=== PATIENT | male | born 1950 | race Caucasian/White ===

== ENCOUNTER 2017-09-21 11:37 | Emergency (ER) | payer OTHER, MEDICAID ==
[~2017-09-21] VITALS: Ht 167.6 cm; Wt 81.6 kg
[2017-09-21 11:37] VITALS: BP_SYST 128
[2017-09-21 13:22] VITALS: BP_SYST 125
== END 2017-09-21 13:22 | disposition home or self-care (01) ==
LOC: SED 11:37
DX: J06.9 Acute upper respiratory infection, unspecified (principal); E11.9 Type 2 diabetes mellitus without complications; I10 Essential (primary) hypertension
CPT/HCPCS: 71046-TC; 99284

== ENCOUNTER 2018-04-06 22:18 | Inpatient (IN) | payer OTHER, MEDICAID ==
[~2018-04-06] VITALS: Ht 167.6 cm; Wt 78.9 kg
[2018-04-06 22:20] VITALS: BP_SYST 150
[2018-04-06] MEDS ORDERED: NACL 0.9% 1,000 ML IV ONE (22:31)
[2018-04-06] MEDS ORDERED: ASPIRIN 81 MG TAB.CHEW PO ONE (22:45)
[2018-04-06] MEDS ORDERED: MORPHINE 4 MG/ML INJ. SYRINGE IVP ONE (22:45)
[2018-04-06] MEDS ORDERED: CLOPIDOGREL BISULFATE 75 MG TABLET PO ONE (22:45)
[2018-04-06] MEDS ORDERED: ONDANSETRON HCL 4 MG/2 ML VIAL IVP ONE (22:45)
[2018-04-06 23:08] LABS: BASOPHILS # (AUTO) 0.1 K/uL (0.0-0.2); BASOPHILS % (AUTO) 1.9 % (0.0-2.0); EOSINOPHILS # (AUTO) 0.1 K/uL (0.0-0.4); EOSINOPHILS % (AUTO) 2.3 % (0.0-4.0); HEMATOCRIT 35.3 % (36-54); HEMOGLOBIN 12.3 g/dL (14.0-18.0); LYMPHOCYTES # (AUTO) 1.3 K/uL (1.0-5.5); LYMPHOCYTES % (AUTO) 26.4 % (20.5-51.5); MEAN CORPUSCULAR HEMOGLOBIN 32 pg (27-31); MEAN CORPUSCULAR HGB CONC 35 % (32-36); MEAN CORPUSCULAR VOLUME 92 fL (79.0-98.0); MONOCYTES # (AUTO) 0.5 K/uL (0.0-1.0); MONOCYTES % (AUTO) 9.4 % (1.7-9.3); NEUTROPHILS # (AUTO) 2.9 K/uL (1.8-7.7); PLATELET COUNT (AUTO) 205 K/uL (130-430); RED BLOOD CELL COUNT(AUTO) 3.86 MIL/uL (4.2-6.2); RED CELL DISTRIBUTION WIDTH 11.7 % (9.0-15.0); WHITE BLOOD COUNT (AUTO) 4.9 K/uL (4.8-10.8)
[2018-04-06 23:22] LABS: CALCIUM 8.6 mg/dL (8.4-11.0); CREATININE 1.14 mg/dL (0.55-1.30); POTASSIUM 4.4 mmol/L (3.5-5.1)
[2018-04-06 23:25] LABS: INR 1.1 (0.80-1.20); PROTHROMBIN TIME 11.2 SECS (9.5-12.5)
[2018-04-06 23:26] LABS: ALBUMIN 4.2 g/dL (3.4-4.8); TOTAL BILIRUBIN 0.4 mg/dL (0.0-1.0)
[2018-04-06] MEDS ORDERED: GLIP10TA11 PO (23:42)
[2018-04-06] MEDS ORDERED: ASPI-1155 PO (23:42)
[2018-04-06] MEDS ORDERED: AMLO5TAB4 PO (23:42)
[2018-04-06] MEDS ORDERED: RANO500T2 PO (23:42)
[2018-04-06] MEDS ORDERED: NITSL SL (23:42)
[2018-04-06] MEDS ORDERED: ALPR0.5T PO (23:42)
[2018-04-06] MEDS ORDERED: METF1000 PO (23:42)
[2018-04-06] MEDS ORDERED: METO-442 PO (23:42)
[2018-04-06] MEDS ORDERED: LIP80 PO (23:42)
[2018-04-06] MEDS ORDERED: LISI-219 PO (23:42)
[2018-04-06 23:56] LABS: BILIRUBIN,URINE NEGATIVE (NEGATIVE); BLOOD, URINE NEGATIVE (NEGATIVE); CLARITY/URINE CLEAR (CLEAR); COLOR,URINE YELLOW (YELLOW); GLUCOSE,URINE NEGATIVE (NEGATIVE); KETONES,URINE NEGATIVE (NEGATIVE); LEUKOCYTE ESTERASE ,URINE NEGATIVE (NEGATIVE); NITRITE, URINE NEGATIVE (NEGATIVE); PH,URINE 6.5 (5.0-8.0); PROTEIN URINE NEGATIVE (NEGATIVE); UROBILINOGEN,URINE 0.2 (0.2-1.0)
[2018-04-07] MEDS ORDERED: NITROGLYCERIN 1 INCH (GM) OINT. TP ONE (01:00)
[2018-04-07] MEDS ORDERED: ACETAMINOPHEN 325 MG TABLET PO PRN (01:00)
[2018-04-07] MEDS ORDERED: NITROGLYCERIN 0.4 MG TAB.SUBL SL SCH (01:00)
[2018-04-07] MEDS ORDERED: NITROGLYCERIN 1 INCH (GM) OINT. ONE (01:07)
[2018-04-07 01:16] VITALS: BP_SYST 124
[2018-04-07 08:00] VITALS: BP_SYST 110
[2018-04-07] MEDS: RANOLAZINE 500 MG TAB.SR.12H PO SCH ×2 (08:33→21:40)
[2018-04-07] MEDS: metFORMIN HCL 500 MG TABLET PO SCH ×2 (08:33→17:39)
[2018-04-07] MEDS: METOPROLOL TARTRATE 50 MG TABLET PO SCH (08:34)
[2018-04-07] MEDS: ASPIRIN 81 MG TAB.CHEW PO SCH (08:34)
[2018-04-07] MEDS: amLODIPine BESYLATE 5 MG TABLET PO SCH (08:35)
[2018-04-07 09:38] LABS: ANION GAP 7 (5-15); CALCIUM 8.4 mg/dL (8.4-11.0); CHLORIDE 95 mmol/L (98-107); CREATININE 0.94 mg/dL (0.55-1.30); GLUCOSE 183 mg/dL (70-99); POTASSIUM 4.9 mmol/L (3.5-5.1); SODIUM SERUM 128 mmol/L (136-145); UREA NITROGEN, BLOOD 18 mg/dL (8-21)
[2018-04-07 09:41] LABS: GFR AFRICAN AMERICAN 103 mL/min (>90)
[2018-04-07 09:47] LABS: BASOPHILS % (AUTO) 0.5 % (0.0-2.0); EOSINOPHILS # (AUTO) 0.1 K/uL (0.0-0.4); EOSINOPHILS % (AUTO) 2.8 % (0.0-4.0); HEMATOCRIT 34.4 % (36-54); LYMPHOCYTES # (AUTO) 1.5 K/uL (1.0-5.5); LYMPHOCYTES % (AUTO) 30.6 % (20.5-51.5); MEAN CORPUSCULAR HEMOGLOBIN 32 pg (27-31); MEAN CORPUSCULAR HGB CONC 35 % (32-36); MEAN CORPUSCULAR VOLUME 92 fL (79.0-98.0); MONOCYTES # (AUTO) 0.5 K/uL (0.0-1.0); NEUTROPHILS # (AUTO) 2.9 K/uL (1.8-7.7); NEUTROPHILS % (AUTO) 56.1 % (40.0-70.0); PLATELET COUNT (AUTO) 211 K/uL (130-430); RED BLOOD CELL COUNT(AUTO) 3.75 MIL/uL (4.2-6.2); RED CELL DISTRIBUTION WIDTH 11.7 % (9.0-15.0)
[2018-04-07] MEDS: INSULIN ASPART 100 UNITS/ML, 10 ML VIAL (NovoLOG) SUBCUT PRN ×2 (11:57→17:43)
[2018-04-07 13:08] VITALS: BP_SYST 122
[2018-04-07] MEDS ORDERED: ALPRAZolam 0.25 MG TABLET PO ONE (16:30)
[2018-04-07 17:04] VITALS: BP_SYST 125
[2018-04-07] MEDS ORDERED: ALPRAZolam 0.25 MG TABLET PO PRN (17:45)
[2018-04-07] MEDS: ATORVASTATIN 20 MG TABLET PO SCH (21:39)
[2018-04-07] MEDS: ALPRAZolam 0.25 MG TABLET PO SCH (21:39)
[2018-04-07] MEDS ORDERED: MILK OF MAGNESIA 30 ML UDC PO ONE (23:00)
[2018-04-07] MEDS: DOCUSATE SODIUM 250 MG CAPSULE PO SCH (23:00)
[2018-04-08 00:33] VITALS: BP_SYST 130
[2018-04-08 07:55] LABS: CALCIUM 8.5 mg/dL (8.4-11.0); CREATININE 0.89 mg/dL (0.55-1.30); POTASSIUM 4.5 mmol/L (3.5-5.1)
[2018-04-08 08:00] VITALS: BP_SYST 116
[2018-04-08] MEDS: RANOLAZINE 500 MG TAB.SR.12H PO SCH ×2 (08:14→20:36)
[2018-04-08] MEDS: metFORMIN HCL 500 MG TABLET PO SCH ×2 (08:14→17:44)
[2018-04-08] MEDS: DOCUSATE SODIUM 250 MG CAPSULE PO SCH ×2 (08:15→20:41)
[2018-04-08] MEDS: ASPIRIN 81 MG TAB.CHEW PO SCH (08:15)
[2018-04-08] MEDS: amLODIPine BESYLATE 5 MG TABLET PO SCH (08:15)
[2018-04-08] MEDS: METOPROLOL TARTRATE 50 MG TABLET PO SCH (08:16)
[2018-04-08 08:21] LABS: TOTAL BILIRUBIN 0.3 mg/dL (0.0-1.0)
[2018-04-08 08:22] LABS: ALBUMIN 3.5 g/dL (3.4-4.8)
[2018-04-08 08:23] LABS: THYROID STIMULATING HORMONE 1.06 uIu/mL (0.34-4.82)
[2018-04-08] MEDS ORDERED: OMEPRAZOLE 20 MG CAPSULE.DR (PriLOSEC) PO ONE (10:45)
[2018-04-08 13:01] VITALS: BP_SYST 127
[2018-04-08] MEDS ORDERED: MORPHINE 2 MG/ML INJ. SYRINGE IVP PRN ×2 (15:15→16:45)
[2018-04-08] MEDS ORDERED: *LOVENOX 1MG/KG Q12H/PHARMACY XX PRN (16:30)
[2018-04-08] MEDS ORDERED: ENOXAPARIN SODIUM 80 MG/0.8 ML SYRINGE ONE (16:53)
[2018-04-08] MEDS ORDERED: ENOXAPARIN SODIUM 80 MG/0.8 ML SYRINGE SUBCUT ONE (17:15)
[2018-04-08 17:16] VITALS: BP_SYST 136
[2018-04-08 17:28] VITALS: BP_SYST 117
[2018-04-08 20:00] VITALS: BP_SYST 137
[2018-04-08] MEDS: ATORVASTATIN 20 MG TABLET PO SCH (20:36)
[2018-04-08] MEDS: ALPRAZolam 0.25 MG TABLET PO SCH (20:36)
[2018-04-08] MEDS: INSULIN ASPART 100 UNITS/ML, 10 ML VIAL (NovoLOG) SUBCUT PRN (20:44)
[2018-04-08] MEDS ORDERED: OMEPRAZOLE 20 MG CAPSULE.DR (PriLOSEC) PO SCH (21:00)
[2018-04-08] MEDS ORDERED: MILK OF MAGNESIA 30 ML UDC PO SCH (21:00)
[2018-04-09] MEDS ORDERED: ENOXAPARIN SODIUM 80 MG/0.8 ML SYRINGE SUBCUT SCH (09:00)
== END 2018-04-08 21:15 | disposition short-term general hospital (02) | DRG 313 ==
LOC: SED 22:18 → STU 04-07 00:46
PROVIDERS: ADMIT Internal Medicine; ATTEND Internal Medicine
DX: R07.89 Other chest pain (principal); E87.1 Hypo-osmolality and hyponatremia; E11.9 Type 2 diabetes mellitus without complications; E78.5 Hyperlipidemia, unspecified; A08.4 Viral intestinal infection, unspecified; F41.9 Anxiety disorder, unspecified; I10 Essential (primary) hypertension; I25.10 Atherosclerotic heart disease of native coronary artery without angina pectoris; Z87.891 Personal history of nicotine dependence; Z95.5 Presence of coronary angioplasty implant and graft; Z79.899 Other long term (current) drug therapy; Z79.82 Long term (current) use of aspirin
CPT/HCPCS: 36415; 71045; 80048; 80053; 80061; 81003; 82150-TC; 82550-TC; 82962; 83036; 83690-TC; 83880; 84443-TC; 84484; 85025; 85610-TC; 85730-TC; 87081; 93005; 96361; 96374; 96375; 99285; J1650; J1815; J2270; J2405